=== PATIENT | male | born 1960 | race Two or more races ===

== ENCOUNTER 2019-11-19 15:52 | Emergency (ER) | payer OTHER ==
[~2019-11-19] VITALS: Ht 167.6 cm; Wt 82.0 kg
[2019-11-19 16:03] VITALS: BP 140/74
[2019-11-19] MEDS ORDERED: HYDROCODONE/ACETAMINOPHEN 5/325MG TABLET PO STA (18:31)
[2019-11-19] MEDS ORDERED: BACITRACIN ZINC OINT UDPKT TOP ONE (18:45)
== END 2019-11-19 19:10 | disposition home or self-care (01) ==
LOC: ER 15:52 → EDSEX 15:52 → ER 19:10
DX: S61.231A Puncture wound without foreign body of left index finger without damage to nail, initial encounter (principal); E11.9 Type 2 diabetes mellitus without complications; W22.8XXA Striking against or struck by other objects, initial encounter; Y93.89 Activity, other specified; Y92.018 Other place in single-family (private) house as the place of occurrence of the external cause
CPT/HCPCS: 73140; 99283